=== PATIENT | female | born 1955 | race Caucasian/White ===

== ENCOUNTER 2020-07-12 21:44 | Inpatient (IN) | payer MEDICARE, MEDICAID, OTHER ==
[2020-07-12 23:03] LABS: Bilirubin Negative (Negative); Blood, Urine Negative (Negative); Clarity Clear (Clear); Glucose, Urine (Dipstick) Normal (Negative); Ketone, Urine Negative (Negative); Leukocyte Negative Leu/uL (Negative); Nitrite Negative (Negative); Protein, Urine (Dipstick) 10 mg/dL (Neg-Trace); Specific Gravity, Urine 1.021 (1.002-1.036); Urobilinogen Normal mg/dL (Less than 2)
[2020-07-12 23:13] LABS: Amphetamine Not Detected (NotDetected); Barbiturates Screen Not Detected (NotDetected); Benzodiazepine Screen Not Detected (NotDetected); Cocaine Metabolite Screen Not Detected (NotDetected); Medtox Control Line Valid? VALID (VALID); Medtox Reader # READER 4; Methadone Not Detected (NotDetected); Methamphetamine Not Detected (NotDetected); Opiate Screen Not Detected (NotDetected); Oxycodone Screen Not Detected (NotDetected); Phencyclidine (PCP) Not Detected (NotDetected); THC/Cannabinoid Screen Not Detected (NotDetected); Tricyclic Screen Detected (NotDetected)
[2020-07-13] MEDS ORDERED: Guaifenesin DM 100-10/5 ML UDCUP PO PRN (02:34)
[2020-07-13] MEDS ORDERED: Ondansetron PF 4 MG/2 ML Vial IVP PRN (02:34)
[2020-07-13] MEDS ORDERED: Labetalol HCl 100 MG/20 ML VIAL SLOW IVP PRN (02:34)
[2020-07-13] MEDS ORDERED: Promethazine HCl 12.5 MG in Sodium Chloride 0.9% 50 ML IVPB PRN (02:34)
[2020-07-13] MEDS ORDERED: hydrALAZINE 20 MG/ML VIAL SLOW IVP PRN (02:34)
[2020-07-13] MEDS ORDERED: cloNIDine 0.1 MG TAB PO PRN (02:34)
--- NOTE | 2020-07-13 02:39 | PDOC.HHP ---
Hospitalist HPI - History of Present Illness Altered mental status History of Present Illness: Patient is a 65 year old female with PMH COPD, CHF who presents to ED by annieer for altered mental status, last night she fell around 8pm in restroom onto her face, family had reported that she was running into furniture and was below baseline mentation. 1 hour later she was found unresponsive, not following commands. Was given narcan x 3 doses with some improvement, by time I evaluated her, mentation was back to baseline, she denies any use of narcotic medications but takes 800mg seroquel nightly. She denies fever, chills, shortness of breath. On further questioning, she reports several new large abscesses on thigh and leg. In ED, labs w/ hypokalemia 3.0, UDS positive for tricyclics, troponin EKG NSR, 93 bpm, no acute ST changes, of note QTc 710, CXR report pending patient given IVF, magnesium sulfate. Hospitalist ROS - Review of Systems Constitutional: denies: fever, chills, sweats, weakness, malaise, other Eyes: denies: pain, vision change, conjunctivae inflammation, eyelid inflammation, redness, other ENT: denies: ear pain, ear discharge, nose pain, nose discharge, nose congestion , mouth pain, mouth swelling, throat pain, throat swelling, other Respiratory: denies: cough, dry, shortness of breath, hemoptysis, SOB with excertion, pleuritic pain, sputum, wheezing, other Cardiovascular: denies: chest pain, palpitations, orthopnea, paroxysmal noc. dyspnea, edema, light headedness, other Gastrointestinal: denies: nausea, vomiting, abdominal pain, diarrhea, constipation, melena, hematochezia, other Genitourinary: denies: dysuria, frequency, incontinence, hematuria, retention, other Musculoskeletal: denies: neck pain, shoulder pain, arm pain, back pain, hand pain, leg pain, foot pain, other Skin: denies: rash, lesions, leland, bruising, other Neurological: denies: weakness, numbness, incoordination, change in speech, confusion, seizures, other All other systems reviewed; all pertinent +/- noted in HPI/Subj - Medication Medications: QUEtiapine WedJul 12, 2020 23:06 CLARISSE Aranda Victoria tablet : Strength - 400 mg : ORAL Patient Dose: 800 mg Oral once a day (at bedtime). ranolazine WedJul 12, 2020 23:06 CLARISSE Aranda Victoria tablet extended release 12 hr : Strength - 500 mg : ORAL Patient Dose: 500 mg Oral 2 times a day. gabapentin WedJul 12, 2020 23:07 CLARISSE Aranda Victoria capsule : Strength - 300 mg : ORAL Patient Dose: 300 mg Oral 2 times a day. multivitamin oral WedJul 12, 2020 23:07 CLARISSE Aranda Victoria tablet : ORAL Patient Dose: 1 tab(s) Oral once a day. magnesium WedJul 12, 2020 23:07 CLARISSE Aranda Victoria tablet : Strength - 250 mg : ORAL Patient Dose: 250 mg Oral once a day. B Complex oral WedJul 12, 2020 23:08 CLARISSE Aranda Victoria capsule : ORAL Patient Dose: 1 cap(s) Oral once a day. nitroglycerin sublingual WedJul 12, 2020 23:09 LCARISSE Aranda Victoria tablet, sublingual : Strength - 0.4 mg : SUBLINGUAL Patient Dose: 0.4 mg Sublingual As Needed. albuterol sulfate inhalation WedJul 12, 2020 23:09 CLARISSE Aranda Victoria HFA aerosol inhaler : Strength - 90 mcg : INHALATION Patient Dose: 90 mcg Inhaler As Needed. Hospitalist History - Past Medical History Other Medical History: chf, copd - Past Surgical History Past Surgical History: reports: no pertinent history - Family History Family History: reports: no pertinent history - Social History Smoking Status: Never smoker Alcohol: reports: None Drugs: reports: none - Exam General Appearance: NAD, awake alert Eye: PERRL, anicteric sclera ENT: normocephalic atraumatic, no oropharyngeal lesions, moist mucosa Neck: supple, symmetric, no JVD, no thyromegaly, no lymphadenopathy, no carotid bruit Heart: RRR, no murmur, no gallops, no rubs, normal peripheral pulses Respiratory: CTAB, no wheezes, no rales, no ronchi, normal chest expansion, no tachypnea, normal percussion Gastrointestinal: soft, non-tender, non-distended, normal bowel sounds, no palpable masses, no hepatomegaly, no splenomegaly, no bruit Extremities: no cyanosis, no clubbing, no edema Skin: normal turgor, no lesions, no rashes Skin - other findings: abscesses w/ induration, firmness 4-5cm on back and R inner thigh Neurological: cranial nerve grossly intact, normal sensation to touch, no weakness, no focal deficits, no new deficit Musculoskeletal: normal tone, normal strength, no muscle wasting Psychiatric: normal affect, normal behavior, A&O x 3 Hospitalist Results - Labs Result Diagrams: 07/13/20 03:03 07/13/20 03:04 Lab results: Troponin I 0.040 ng/mL (< 0.028) H 07/13/20 01:05 Urine Ketones Negative mg/dL (Negative) 07/12/20 22:48 Urine Blood Negative (Negative) 07/12/20 22:48 Urine Nitrite Negative (Negative) 07/12/20 22:48 Ur Leukocyte Esterase Negative Patito/uL (Negative) 07/12/20 22:48 Additional comment: VITAL SIGNS Sat Jul 13, 2020 01:20 CLARISSE Aranda Victoria BP: 94/63 MAP: 73 Pulse: 80 Resp: 17 Temp: 97.7 (Oral) O2 sat: 97 on (2L Oxygen) Time: 07/13/2020 01:20. Hospitalist H&P A/P - Plan Plan: 65 year old female with PMH COPD, CHF admitted for altered mental status, syncope. # syncope # altered mental status # prolonged QTc - 710 on EKG # possible tricyclic overdose - long QT and positive tricyclics in urine patient mental status improved now, no narcotics on drug screen so likely naarcan didnt actually do anything, patient at risk of severe arrhtyhmia if this is indeed tricyclic overdose - admit to IMCU - start bicarbonate drip - consult critical care medicine # concern for multiple abscesses on back/thighs - follow blood cultures - started vancomycin - consult surgery to eval for I&D
[2020-07-13] MEDS ORDERED: Electrolyte Replacement Protoc 1 EACH EACH FS SCH (02:45)
[2020-07-13 02:48] VITALS: BMI 28.9
[2020-07-13 03:14] LABS: #Basophils 0.1 thou/uL (0.0-0.2); #Eosinphils 0.1 thou/uL (0.0-0.7); #Lymphocytes 2.4 thou/uL (1.20-3.40); #Monocytes 0.8 thou/uL (0.11-0.59); #Neutrophils 5.9 thou/uL (1.40-6.50); %Basophils 0.5 % (0.0-1.0); %Lymphocytes 26.5 % (21.0-51.0); %Monocytes 8.4 % (0.0-10.0); %Neutrophils 63.6 % (42.0-75.0); Hemoglobin 13.5 g/dL (12.0-16.0); Mean Corpuscular HGB CONC 33.8 g/dL (32.0-36.0); Mean Corpuscular Volume 91.7 fL (78.0-98.0); Mean Platelet Volume 7.9 fL (7.4-10.4); Platelet Count 199 thou/uL (130-400); RBC Distribution Width 12.2 % (11.5-14.5); Red Blood Cell (RBC) Count 4.37 mill/uL (4.20-5.40); White Blood Cell (WBC) Count 9.2 thou/uL (4.8-10.8)
[2020-07-13] MEDS ORDERED: Vancomycin HCl 1.75 GM in Sodium Chloride 0.9% 500 ML IVPB SCH (03:30)
[2020-07-13] MEDS ORDERED: Sodium Chloride 0.9% 1,000 ML IV SCH ×2 (03:30→07:00)
[2020-07-13] MEDS: NS 0.9% w/ 40 MEQ KCL 1,000 ML IV SCH ×2 (03:35→04:23)
[2020-07-13 03:41] LABS: Anion Gap 12 mmol/L (10-20); BUN (Urea Nitrogen) 9 mg/dL (9.8-20.1); Calc. Creatinine Clearance 76 mL/min (70-130); Calcium 7.8 mg/dL (7.8-10.44); Carbon Dioxide 23 mmol/L (23-31); Chloride 104 mmol/L (98-107); Estimated GFR-MDRD 58; Glucose 109 mg/dL (80-115); Magnesium 2.2 mg/dL (1.6-2.6); Sodium 136 mmol/L (136-145)
[2020-07-13 03:49] LABS: Troponin I 0.046 ng/mL (< 0.028)
[2020-07-13] MEDS ORDERED: Electrolyte Replacement Protocol FS PRN (04:30)
[2020-07-13] MEDS ORDERED: Potassium Chloride 20 MEQ TAB PO SCH ×2 (04:45→06:45)
[2020-07-13] MEDS: Melatonin 3 MG TAB PO PRN ×2 (05:15→19:33)
[2020-07-13] MEDS ORDERED: Sodium Bicarbonate 150 MEQ in Dextrose 5% in Water 1,000 ML IV SCH (07:15)
--- NOTE | 2020-07-13 07:55 | RAD ---
SUPINE FRONTAL CHEST: Date: 07/12/2020 COMPARISON: 04/11/2020. HISTORY: Altered mental status. FINDINGS: There is a mass-like opacity in the left upper lobe/left suprahilar region lateral to the left hilar shadow measuring approximately 4.1 cm. Coarse increased linear interstitial densities are noted. Supi ne imaging limits assessment for pneumothorax and pleural fluid. IMPRESSION: Focal mass-like opacity in the suprahilar region on the left. This may represent a left hilar mass le rakesh. Further assessment with CT examination of the chest advised. Results called to Dr. Rivera at 2230 hours on 07/12/2020. CODE CR. POS: OFF
[2020-07-13 08:48] LABS: Band 4 % (5-11); Eosinophils 1 % (0-10); Hemoglobin 12.5 g/dL (12.0-16.0); Lymphocytes 28 % (21-51); MDiff Complete? YES; Mean Corpuscular Hemoglobin 31.6 pg (27.0-31.0); Mean Corpuscular Volume 92.9 fL (78.0-98.0); Mean Platelet Volume 8.5 fL (7.4-10.4); Monocytes 3 % (0-10); Neutrophil 64 % (42-75); Platelet Count 175 thou/uL (130-400); Platelet Morphology Comment Appears Adequate; RBC Distribution Width 12.4 % (11.5-14.5); Red Blood Cell (RBC) Count 3.97 mill/uL (4.20-5.40); White Blood Cell (WBC) Count 6.9 thou/uL (4.8-10.8)
[2020-07-13 08:59] LABS: #Eosinphils 0.1 thou/uL (0.0-0.7); #Lymphocytes 1.5 thou/uL (1.20-3.40); #Monocytes 0.7 thou/uL (0.11-0.59); #Neutrophils 4.7 thou/uL (1.40-6.50); %Basophils 0.6 % (0.0-1.0); %Eosinophils 1.9 % (0.0-10.0); %Lymphocytes 21.5 % (21.0-51.0); %Monocytes 9.5 % (0.0-10.0); %Neutrophils 66.5 % (42.0-75.0); Hemoglobin 12.5 g/dL (12.0-16.0); Mean Corpuscular HGB CONC 33.2 g/dL (32.0-36.0); Mean Corpuscular Hemoglobin 30.9 pg (27.0-31.0); Mean Platelet Volume 7.6 fL (7.4-10.4); Platelet Count 173 thou/uL (130-400); RBC Distribution Width 12.3 % (11.5-14.5); Red Blood Cell (RBC) Count 4.06 mill/uL (4.20-5.40)
[2020-07-13] MEDS: Polyethylene Glycol 3350 17 GM Packet PO SCH (09:21)
[2020-07-13] MEDS: Famotidine 20 MG TAB PO SCH ×2 (09:21→19:33)
[2020-07-13] MEDS: Enoxaparin Sodium 40 MG/0.4 ML SYRINGE SC SCH (09:21)
[2020-07-13 10:52] LABS: Actual Bicarbonate (HCO3a) 22.3 mEq/L (22-28); Base Excess (BEa) -2.6 mEq/L (-2.0 to +3.0); CO2 Tension 39.2 mmHg (35.0-45.0); Calcium, Ionized (arterial) 1.14 mmol/L (1.12-1.30); Carboxyhemoglobin (COHb) 1.3 gm% (0.0-3.0); Hemoglobin (Hb) 12.8 g/dL (12.0-16.0); O2 Tension (PaO2), arterial 77.2 mmHg (> 80.0); Potassium - ABG Lab 3.47 mmol/L (3.70-5.30); pH, Arterial 7.37 (7.35-7.45)
[2020-07-13 10:54] LABS: Puncture Site RRAD
--- NOTE | 2020-07-13 13:48 | CON ---
DATE OF CONSULTATION: REASON FOR CONSULTATION: Syncope. PRIMARY INFRASTRUCTURE CONSULTANT: Dr. Alexis Hernandez. HISTORY OF PRESENT ILLNESS: Ms. Reyes is an unfortunate 65-year-old woman, who recently states she had a syncopal episode. The history is somewhat vague. The patient appears confused. She also appears disheveled. The nurse from the emergency room states she was stumbling and found by her family in the house. She had difficulty with responsiveness. There was concern for overdose on tricyclics. No chest pain or pressure noted. Her initial QT interval was felt to be prolonged, but difficult to ascertain based on her EKG. Her EKG this morning does show a normal QT interval. PAST MEDICAL HISTORY: Hyperlipidemia, hypertension continued tobacco abuse, asthma, bipolar disorder, spinal stenosis, neck surgery, spinal surgery, hysterectomy, hypertension. ALLERGIES: CODEINE, TETRACYCLINE. MEDICATIONS: Home medications include; 1. Albuterol. 2. Nitroglycerin. 3. Ranexa. 4. Quetiapine. 5. Gabapentin. 6. Vitamin B. REVIEW OF SYSTEMS: Difficult to obtain. PHYSICAL EXAMINATION: VITAL SIGNS: Blood pressure 115/49, pulse 96, respirations 20. GENERAL: Patient is a pleasant female, who is in no acute distress. She does appear older and stated age, and disheveled. NEUROLOGIC: The patient is alert and oriented x3 with no focal neurologic deficits. HEENT: Sclerae without icterus. Mouth has moist mucous membranes with normal pallor. NECK: No JVD. Carotid upstroke brisk. No bruits bilaterally. LUNGS: Clear to auscultation with unlabored respirations. BACK: No scoliosis or kyphosis. CARDIAC: Regular rate and rhythm with normal S1 and S2. No S3 or S4 noted. No significant rubs, murmurs, thrills, or gallops noted throughout the precordium. PMI is not displaced. There is no parasternal heave. ABDOMEN: Soft, nontender, nondistended. No peritoneal signs present. No hepatosplenomegaly. No abnormal striae. EXTREMITIES: 2+ femoral and 2+ dorsalis pedis pulses. No cyanosis, clubbing, or edema. SKIN: No gross abnormalities. PERTINENT LABORATORY DATA: Hemoglobin 12.5, hematocrit 37.6. Creatinine 0.96. Peak troponin 0.04. IMPRESSION: 1. Prolonged QT interval. 2. Mild coronary artery disease based on angio of 2013. 3. Tobacco abuse. RECOMMENDATIONS: Ms. Reyes's EKG appears to have normalized. Of course, the history is difficult. The patient is a very poor historian. According to the family, there was no syncope. We will continue to monitor closely. We would recommend an echo Doppler to assess LVEF. Pad Hand on cessation of all tobacco products. Job ID: [id number]
--- NOTE | 2020-07-13 15:56 | CON ---
DATE OF CONSULTATION: 07/13/2020 HISTORY OF PRESENT ILLNESS: Judith Reyes is a 65-year-old female, who was admitted at 2:30 this morning. Per the ER records, she was brought in by EMS via helicopter after being seen by the family, stumbling around the house and falling and hitting her head. Apparently, she is minimally responsive. Apparently, Narcan partially reversed her unresponsiveness. By the time she got here, she was moving all her extremities and following commands. She is verbal, trying to eat a hamburger today, but she is absolutely crosswise in bed with her legs hanging out on one side and her head barely on the bed on the other side. Railings were up. She was dropping her food all over her bed. She asked if I wanted a bite of her hamburger. She does know she is in the hospital. Reviewing old records, she has never been hospitalized here. I was consulted because of her presence in the intermediate care unit. PAST MEDICAL HISTORY: Otherwise unknown with the exception of what is in the available records. She has a history of lipid disorder, hypertension, bipolar disorder, spinal stenosis, history of back surgery, hysterectomy, and reported history of asthma. ALLERGIES: SHE REPORTS CODEINE AND TETRACYCLINE ALLERGIES. MEDICATIONS: Prior to admission, she was on; 1. Albuterol. 2. Nitroglycerin. 3. Ranexa. 4. Seroquel. 5. Gabapentin. 6. Vitamin D. REVIEW OF SYSTEMS: Not obtainable. PHYSICAL EXAMINATION: GENERAL: She is in no distress. She has very rough voice. VITAL SIGNS: She is afebrile. Heart rate is 78, oximetry is 96, blood pressure 115/49. She is very unkept. HEENT: Pupils are equal. Sclerae are anicteric. Extraocular movements appear full. NECK: Supple without lymphadenopathy. LUNGS: Clear. HEART: Regular rhythm. S1 and S2 are normal. ABDOMEN: Soft and nontender. EXTREMITIES: Without asymmetry or edema. NEUROLOGIC: Grossly nonfocal. LABORATORY DATA: White count 7, hemoglobin 12.5, platelets 173. Sodium 136, potassium 3, chloride 104, bicarb 23, BUN 9, and creatinine 0.96. She had tricyclics on her drug screen, no opiates. IMPRESSION: Encephalopathy that appears to be improving. The etiology of her encephalopathy is unknown. It does not appear that she was COVID screened, although that appears to be an unlikely diagnosis. Cardiac workup is progressing. There are no respiratory issues at this point in time. Chest x-ray was reviewed and shows a mass in the left suprahilar region. It measures about 4 cm. It does not appear that she has had any brain imaging. given normal renal function, she needs a CT of her head with and without contrast. I doubt she would hold still for an MRI, this will be ordered. This is a 50 min consult with greater than 50% of the time spent on the unit with coordination of care. Job ID: [id number] MTDD
[2020-07-13] MEDS: Vancomycin 1 GM in Premix Bag 1 BAG IVPB SCH (17:36)
--- NOTE | 2020-07-13 19:13 | PDOC.EVN ---
Event Note - Event Note Event Note: The patient states she was at a friend's house when she was told she passed out. She denies chest pain, palpitations prior to passing out. SHe states she takes 800 mg of seroquel on a nightly basis for insomnia. Denies taking any TCA She reports that she has been in chronic pain for years, including her back, neck and legs. She complains her right arm is hurting. She is on gabapentin and ranolazine at home Patient states she is begging to eat, wants two sodas and "noe food. " She has refused COVID swab and says she has rights Vitals: normal Gen: alert, awake, oriented times three CV: RRR, no murmurs, rubs, gallops Lungs: CTAB Musc: mild tenderness when touching tendon on right forearm. No swelling noted - left medial thigh noted to have indurated abscess, very tender to palpation with warmth and surrounding erythema Abdomen: + BS, soft, nontender, nondistended Back: patient's right upper back noted to have mild possible abscess as well, very tender to palpation This is a 65 year old male with past medical history of insomnia, who presents with syncope #TCA intoxication #QT prolongation - likely from large seroquel dose - repeat EKG shows no prolongation of QT. ABG unremarkable - sodium bicarb drip discontinued Syncope - likely polypharmacy - ECHO has been ordered and shows mild diastolic dysfunction, mildly elevated pulmonary artery pressure. Cardiology has been consulted #Left thigh abscess #Left back abscess - general surgery consulted - continue Iv vancomycin
[2020-07-13] MEDS: Acetaminophen 325 MG TAB PO PRN (19:33)
[2020-07-14] MEDS ORDERED: Nicotine 21 MG PATCH TD SCH ×3 (00:30→21:00)
[2020-07-14 03:37] LABS: #Eosinphils 0.2 thou/uL (0.0-0.7); #Monocytes 0.7 thou/uL (0.11-0.59); #Neutrophils 5.2 thou/uL (1.40-6.50); %Basophils 0.2 % (0.0-1.0); %Eosinophils 2.1 % (0.0-10.0); %Lymphocytes 24.7 % (21.0-51.0); %Monocytes 8.9 % (0.0-10.0); %Neutrophils 64.1 % (42.0-75.0); Mean Corpuscular HGB CONC 33.1 g/dL (32.0-36.0); Mean Corpuscular Hemoglobin 30.8 pg (27.0-31.0); Mean Platelet Volume 7.8 fL (7.4-10.4); Platelet Count 159 thou/uL (130-400); RBC Distribution Width 12.3 % (11.5-14.5); Red Blood Cell (RBC) Count 4.21 mill/uL (4.20-5.40); White Blood Cell (WBC) Count 8.1 thou/uL (4.8-10.8)
[2020-07-14 04:05] LABS: Anion Gap 9 mmol/L (10-20); BUN (Urea Nitrogen) 9 mg/dL (9.8-20.1); Calc. Creatinine Clearance 93 mL/min (70-130); Calcium 8.2 mg/dL (7.8-10.44); Carbon Dioxide 28 mmol/L (23-31); Chloride 104 mmol/L (98-107); Estimated GFR-MDRD 74; Glucose 95 mg/dL (80-115); Magnesium 1.9 mg/dL (1.6-2.6); Sodium 138 mmol/L (136-145)
[2020-07-14 04:14] LABS: Potassium 2.9 mmol/L (3.5-5.1)
[2020-07-14] MEDS ORDERED: Magnesium 2 GM/50 ML 2 GM in Premix Bag 1 BAG IVPB SCH (04:30)
[2020-07-14] MEDS ORDERED: Potassium Chloride 40 MEQ in Sodium Chloride 0.9% 250 ML 250 ML IVPB SCH (05:00)
[2020-07-14] MEDS: Vancomycin 1 GM in Premix Bag 1 BAG IVPB SCH ×2 (05:10→18:46)
[2020-07-14] MEDS: Potassium Chloride 20 MEQ TAB PO SCH ×2 (05:10→09:48)
[2020-07-14] MEDS: Famotidine 20 MG TAB PO SCH ×2 (09:48→20:11)
[2020-07-14] MEDS: Enoxaparin Sodium 40 MG/0.4 ML SYRINGE SC SCH (09:48)
[2020-07-14] MEDS: Polyethylene Glycol 3350 17 GM Packet PO SCH (10:02)
--- NOTE | 2020-07-14 10:28 | CON ---
DATE OF CONSULTATION: 07/14/2020 CHIEF COMPLAINT: Back and thigh abscesses. HISTORY OF PRESENT ILLNESS: This is a 65-year-old female, admitted to the hospital with encephalopathy. She also was complaining of some left thigh and back pain, found to have abscesses. I have been consulted for drainage of those. She initially turned down COVID testing, but after explaining to her the necessity for an operative procedure, she agrees. PAST MEDICAL HISTORY: Includes COPD, chronic pain, hyperlipidemia, hypertension, bipolar, asthma. SURGICAL HISTORY: Hysterectomy, back surgery. ALLERGIES: CODEINE, TETRACYCLINES. MEDICATIONS: Medicines taken daily; 1. Albuterol. 2. Nitro. 3. Ranexa. 4. Seroquel. 5. Gabapentin. 6. Vitamin D. REVIEW OF SYSTEMS: Ten-system review of systems otherwise negative unless described above. PHYSICAL EXAMINATION: HEENT: Sclerae are anicteric. Oropharynx is clear. NECK: No lymphadenopathy. CHEST: Clear. HEART: Regular rate. ABDOMEN: Soft and nontender. She has a left posterior thigh abscess that is 4 cm in size, fluctuant. She has a 3 cm back abscess, it is fluctuant. There is no bulla or crepitance, subcutaneous emphysema present. LABORATORY DATA: White blood cell count is 8, hemoglobin 13. Creatinine is 0.78. ASSESSMENT: Multiple abscesses. PLAN: I and D in the operating room tomorrow under sedation. Risks, benefits, and alternatives discussed. We are awaiting COVID testing. Job ID: [id number]
--- NOTE | 2020-07-14 11:09 | PDOC.HOSPP ---
- Subjective Encounter Date: 07/14/20 Encounter Time: 11:07 Subjective: The patient is doing better. She is oriented times three. No chest pain or palpitations noted. She still complains of right arm pain with any type of movement. She has not gotten out of bed yet, she states "not even pee." She states, "in fact, I don't even have the urge to pee." - Objective Vital Signs & Weight: Vital Signs (12 hours) Temp Pulse Resp Pulse Ox 07/14/20 07:23 96.2 F L 07/14/20 04:15 97.5 F L 76 18 95 07/14/20 00:38 97.4 F L 61 16 96 Weight Weight 185 lb Most Recent Monitor Data Heart Rate from ECG 78 NIBP 113/67 NIBP BP-Mean 82 Respiration from ECG 15 SpO2 92 I&O: 07/13/20 07/14/20 07/15/20 06:59 06:59 06:59 Intake Total 3100 760 Output Total 1050 1875 Balance 0 -1115 Result Diagrams: 07/14/20 03:22 07/14/20 03:22 Hospitalist ROS - Review of Systems Constitutional: denies: fever, chills - Medication Medications: Active Medications Generic Name Dose Route Start Last Admin Trade Name Freq PRN Reason Stop Dose Admin Acetaminophen 650 mg 07/13/20 02:34 07/13/20 19:33 Tylenol PO 650 mg Q4H PRN Administration Headache/Fever/Mild Pain (1-3) Enoxaparin Sodium 40 mg 07/13/20 09:00 07/14/20 09:48 Lovenox SC 40 mg 0900 STEPH Administration Famotidine 20 mg 07/13/20 09:00 07/14/20 09:48 Pepcid PO 20 mg BID STEPH Administration Vancomycin HCl 1 gm/ Device 200 mls @ 200 mls/hr 07/13/20 18:00 07/14/20 05: 10 IVPB 200 mls 0600,1800 STEPH Administration Melatonin 6 mg 07/13/20 04:53 07/13/20 19:33 Melatonin PO 6 mg HS PRN Administration Insomnia Polyethylene Glycol 17 gm 07/13/20 09:00 07/14/20 10:02 Miralax PO Not Given DAILY STEPH Sodium Chloride 10 ml 07/13/20 09:00 07/13/20 19:34 Flush - Normal Saline IVF 10 ml Q12HR STEPH Administration - Exam General Appearance: NAD, awake alert Eye: PERRL, anicteric sclera ENT: normocephalic atraumatic, no oropharyngeal lesions Neck: no JVD Heart: RRR, no murmur, no gallops, no rubs Respiratory: CTAB, no wheezes, no rales, no ronchi Gastrointestinal: soft, non-tender, non-distended, normal bowel sounds Extremities: no cyanosis, no clubbing, no edema Extremities - other findings: right shoulder tenderness, pain lifting right arm above 180. Skin - other findings: old bed bug bites right arm Musculoskeletal - other findings: right elbow tenderness and wrist tenderness with turning wrist Psychiatric: normal affect, normal behavior, A&O x 3, oriented to person Hosp A/P - Plan Chest X ray: mass like opacity in suprahilar region This is a 65 year old male with past medical history of insomnia, who presents with syncope #Acute encephalopathy likely secondary to seroquel - back to baseline - CT brain with and without contrast ordered given that she fell #+TCA - likely cross reactivity from seroquel #QT prolongation - likely from large seroquel dose #Syncope - likely from QT prolongation from seroquel - repeat EKG shows no prolongation of QT. ABG unremarkable - sodium bicarb drip discontinued - seroquel dose is on hold, she takes 800 mg at home - ECHO showed mildly elevated pulmonary artery pressure. Dr Tolbert is following Hypokalemia - potassium 2.9 this am. Repeat potassium at noon, s/p 80 mg of oral potassium #Left suprahilar mass - obtain CT chest without contrast #Left thigh abscess #Left back abscess - general surgery consulted - continue Iv vancomycin . COVID swab pending prior to surgery - NPO after midnight #Right shoulder pain/arm pain s/p fall - no signs of cellulitis, has pain with abduction of right arm, also has elbow and wrist tenderness - check right shoulder and forearm X ray - continue with PT
--- NOTE | 2020-07-14 11:17 | PRG ---
DATE OF SERVICE: 07/14/2020 SUBJECTIVE: Ms. Reyes's status is unchanged. She has no current complaints. No chest pain or pressure noted. Dr. Lopez was consulted for back and thigh abscesses present. She seems to be more lucid today versus yesterday. OBJECTIVE: VITAL SIGNS: Blood pressure 113/67, pulse 82, temperature 99.1. LUNGS: Rhonchi, rales bilaterally. HEART: Regular rate and rhythm. ABDOMEN: Soft, nontender, nondistended. EXTREMITIES: No edema. GENERAL: She appears disheveled. PERTINENT LABORATORY DATA: White blood cell count 8.1, hemoglobin 13. Potassium 2.9. IMPRESSION: 1. Prolonged QT interval. 2. Overuse of tricyclics. 3. Tobacco abuse. 4. Thigh and back abscess. RECOMMENDATIONS: From a CV standpoint she is stable. No significant dysrhythmias noted overnight. I would recommend repeating her EKG this morning. Her QT appeared shortened yesterday. Echo Doppler did show LVEF 55-60%. Otherwise, from my standpoint, I have no recommendations. Job ID: [id number]
[2020-07-14 12:29] LABS: SARS-CoV-2 MS2 Positive; SARS-CoV-2 N Gene Negative; SARS-CoV-2 S Gene Negative; SARS-CoV-2 by NAA Not Detected (NotDetected); SARS-CoV-2 orf1ab Negative
--- NOTE | 2020-07-14 12:40 | RAD ---
Exam:3 views right shoulder HISTORY: Pain. Fall. COMPARISON: 03/29/2014 FINDINGS: Degenerative changes acromioclavicular joint space.: Minimal joint spaces preserved. No fra ctures or dislocation. There does appear to be right first rib fracture. Pleural thickening may be reactive. IMPRESSION: 1. No fractures or dislocation with respect to the shoulder. 2. Right first rib fracture.
--- NOTE | 2020-07-14 12:43 | CT ---
BRAIN CT WITH AND WITHOUT CONTRAST: HISTORY: Encephalopathy. Lung cancer. Evaluate for intracranial metastases. COMPARISON: 07/12/2020. FINDINGS: Noncontrast head CT: No parenchymal hemorrhage. No intra-axial hematoma. No midline shift. Basilar cisterns have age-appro priate atrophy. Cortical stanton-white white matter differentiation is preserved. No hydrocephalus. Intact calvarium. Adequate aeration of the sinuses and mastoid air cells. Postcontrast head CT: No pathologic enhancement of the brain. IMPRESSION: 1. No acute intracranial process. 2. No pathologic enhancement the brain parenchyma. Better interrogation with brain MRI if clinically warranted. Transcribed Date/Time: 07/14/2020 12:57 PM
[2020-07-14 13:59] LABS: Potassium 3.3 mmol/L (3.5-5.1)
--- NOTE | 2020-07-14 14:04 | CT ---
CHEST CT SCAN WITH IV CONTRAST: History: Pulmonary nodule Comparison: Chest CT 05-04-16 FINDINGS: There is a 3.7 x 4.2 cm diameter left anterior upper lobe pleural based mass adjacent to the superior mediastinum as well as some thickening measuring up to approximately 1.8 cm along the left sided ant erior superior mediastinum extending down into the left hilum. There is an enlarged left AP window no de up to approximately 1.8 cm and a left hilar node up to approximately 1.3 cm, short axis. Subcarina l lymph node 0.9 short axis. There is some minimal associated linear and parenchymal change in the le ft upper lobe and a small 1.1 cm diameter pleural based nodule at the level of the AP window more ant eriorly in position. There is some parenchymal change in the lingual which appears to be stable from the prior study. In the right upper lobe there is a 1.2 cm diameter poorly circumscribed pleural base d mass with some irregular right apical pleural thickening as well as some posterior pleural thickeni ng in the right chest into the lower lobe with some right lower lobe partial atelectasis. Minimal lef t sided posterior pleural thickening with a poorly defined pleural based nodule in the left base florentino uring approximately 0.8 cm in size. No evidence for liver metastasis. The visualized upper abdomen ap pears unremarkable. Other than the previously noted scarring in the lingual, these changes are all ne w when compared to the 05-04-16 study. IMPRESSION: Multiple bilateral mostly pleural based nodules with a larger poorly circumscribed pleural based mass in the superior medial left upper lobe with some associated abnormal thickening along the left media stinum with some associated mediastinal and left hilar lymphadenopathy, certainly concerning for neop lasm. Small right pleural effusion/pleural thickening with some atelectasis, partial, in the right lo wer lobe. Consider follow up PET scan for further assessment. POS: OFF
[2020-07-14] MEDS ORDERED: Potassium Chloride 20 MEQ TAB PO SCH (14:30)
--- NOTE | 2020-07-14 15:16 | PRG ---
DATE OF SERVICE: 07/14/2020 Judith Reyes is tentatively on the schedule to have some abscesses drained. She is still completely she is afebrile. Heart rates in the 70s, respiratory rates in the teens, oximetry is 95 [address] of her head with contrast did not show any evidence of brain mets. I do not think she would hold still for an MRI to get a good MRI of her brain. CT scan of her chest is done, showing a large lung mass in her left upper lobe as expected. Workup of this will have to be put on hold while these abscesses are being treated. Job ID: [id number]
[2020-07-14] MEDS: Lidocaine 5% Patch TD SCH (16:48)
[2020-07-14 17:41] LABS: Vancomycin, Trough 18.1 ug/mL
[2020-07-14] MEDS: Melatonin 3 MG TAB PO PRN (20:11)
[2020-07-14] MEDS: Acetaminophen 325 MG TAB PO PRN (20:12)
[2020-07-14] MEDS: Gabapentin 300 MG CAP PO SCH (20:12)
[2020-07-15] MEDS ORDERED: Lidocaine Patch Removal 1 EACH TOP SCH (04:00)
[2020-07-15 04:07] LABS: #Eosinphils 0.1 thou/uL (0.0-0.7); #Monocytes 0.5 thou/uL (0.11-0.59); #Neutrophils 3.8 thou/uL (1.40-6.50); %Basophils 0.5 % (0.0-1.0); %Eosinophils 2.3 % (0.0-10.0); %Lymphocytes 30.3 % (21.0-51.0); %Monocytes 8.4 % (0.0-10.0); %Neutrophils 58.5 % (42.0-75.0); Hemoglobin 12.7 g/dL (12.0-16.0); Mean Corpuscular HGB CONC 33.3 g/dL (32.0-36.0); Mean Corpuscular Hemoglobin 30.9 pg (27.0-31.0); Mean Corpuscular Volume 92.8 fL (78.0-98.0); Platelet Count 192 thou/uL (130-400); RBC Distribution Width 12.4 % (11.5-14.5); White Blood Cell (WBC) Count 6.5 thou/uL (4.8-10.8)
[2020-07-15 04:26] LABS: Anion Gap 10 mmol/L (10-20); BUN (Urea Nitrogen) 9 mg/dL (9.8-20.1); Calc. Creatinine Clearance 98 mL/min (70-130); Calcium 8.5 mg/dL (7.8-10.44); Carbon Dioxide 27 mmol/L (23-31); Chloride 107 mmol/L (98-107); Estimated GFR-MDRD 77; Glucose 93 mg/dL (80-115); Magnesium 1.9 mg/dL (1.6-2.6); Potassium 4.4 mmol/L (3.5-5.1); Sodium 140 mmol/L (136-145)
[2020-07-15] MEDS ORDERED: Magnesium 2 GM/50 ML 2 GM in Premix Bag 1 BAG IVPB SCH (05:00)
[2020-07-15] MEDS: Vancomycin 1 GM in Premix Bag 1 BAG IVPB SCH ×2 (06:06→18:46)
--- NOTE | 2020-07-15 07:19 | RAD ---
Exam:Right forearm 2 views HISTORY: Fall. Pain. COMPARISON: None FINDINGS: No fracture, cortical irregularity or periosteal action. IMPRESSION: No fracture.
--- NOTE | 2020-07-15 08:46 | PRG ---
DATE OF SERVICE: 07/15/2020 SUBJECTIVE: Judith Reyes is tentatively scheduled to have incision and drainage of her abscesses. OBJECTIVE: VITAL SIGNS: She is afebrile. Heart rate is 80, respiratory rates in the teens, oximetry is 94, blood pressure 111/62. LUNGS: Clear. HEART: Regular rate and rhythm. ABDOMEN: Soft. ASSESSMENT AND PLAN: With regard to her lung mass, I am not sure if this is accessible with the bronchoscope. It is not the priority at this point in time. We will continue to follow. She had initially refused COVID testing, hence the delay in going to the OR. We have encouraged her to be compliant with our recommendations in the future. Job ID: [id number]
[2020-07-15] MEDS ORDERED: Bupivacaine 0.25% HCL 30 ML VIAL ONE (09:08)
[2020-07-15] MEDS ORDERED: Lidocaine 1% w/Epinephrine 1:100K 20 ML VIAL ONE (09:08)
[2020-07-15] MEDS ORDERED: Midazolam HCl 2 mg/2 ml Vial ONE (09:24)
[2020-07-15] MEDS ORDERED: Fentanyl 100 MCG/2 ML VIAL ONE (09:24)
[2020-07-15] MEDS: Enoxaparin Sodium 40 MG/0.4 ML SYRINGE SC SCH (10:05)
[2020-07-15] MEDS: Famotidine 20 MG TAB PO SCH (10:05)
[2020-07-15] MEDS: Gabapentin 300 MG CAP PO SCH (10:05)
[2020-07-15] MEDS: Polyethylene Glycol 3350 17 GM Packet PO SCH (10:06)
[2020-07-15] MEDS ORDERED: Ondansetron HCl/PF 4 MG/2 ML Vial IVP PRN (10:33)
[2020-07-15] MEDS ORDERED: Promethazine HCl 25 MG/ML VIAL SLOW IVP PRN (10:33)
[2020-07-15] MEDS ORDERED: Promethazine HCl 25 MG/ML VIAL IM PRN (10:33)
[2020-07-15 11:23] VITALS: TEMP 98.6
[2020-07-15] MEDS ORDERED: traMADol HCl 50 MG TAB PO PRN (11:38)
[2020-07-15] MEDS ORDERED: Morphine 2 MG/ML VIAL SLOW IVP PRN (11:38)
[2020-07-15] MEDS ORDERED: Morphine 4 MG/ML VIAL SLOW IVP PRN (11:38)
--- NOTE | 2020-07-15 15:52 | OP ---
DATE OF PROCEDURE: 07/15/2020 PREOPERATIVE DIAGNOSES: 1. Back abscess. 2. Posterior thigh abscess. POSTOPERATIVE DIAGNOSES: 1. Back abscess. 2. Posterior thigh abscess. PROCEDURE PERFORMED: Incision and drainage of left posterior deep thigh abscess and right upper back abscess. ANESTHESIA: General. ESTIMATED BLOOD LOSS: Minimal. COMPLICATIONS: None. SPECIMENS: Cultures taken for anaerobes and aerobes from the thigh abscess. DESCRIPTION OF PROCEDURE: The patient was taken to the operating room and laid supine on the operating room table. After general anesthetic was obtained, she was placed in a left lateral decubitus position. Her posterior leg and posterior back were prepped and draped in a sterile fashion. An ellipse of skin taken out over the fluctuant part of the back abscess. No purulence was obtained. There was some necrotic tissue that was all debrided out. The wound was irrigated and packed using iodoform gauze. Next, an ellipse of skin was taken out over the posterior thigh abscess. A small amount of purulence was found and cultured. The wound was packed. Sterile dressings were applied to both wounds. The patient was sent to Recovery in stable condition. All instrument counts, needle counts, and lap counts were correct. Job ID: [id number]
[2020-07-15 16:28] VITALS: BP 108/71
--- NOTE | 2020-07-15 17:03 | EKG ---
Test Reason : Blood Pressure : / mmHG Vent. Rate : 074 BPM Atrial Rate : 074 BPM P-R Int : 194 ms QRS Dur : 108 ms QT Int : 430 ms P-R-T Axes : 059 056 072 degrees QTc Int : 477 ms Normal sinus rhythm Cannot rule out Inferior infarct , age undetermined Abnormal ECG No previous ECGs available Confirmed by DR. Micaela DEMPSEY ([id number]) on 07/15/2020 5:02:50 PM Referred By: KAREN Confirmed By:DR. Micaela DEMPSEY
--- NOTE | 2020-07-15 17:17 | EKG ---
Test Reason : Blood Pressure : / mmHG Vent. Rate : 075 BPM Atrial Rate : 075 BPM P-R Int : 174 ms QRS Dur : 096 ms QT Int : 392 ms P-R-T Axes : 093 056 074 degrees QTc Int : 437 ms Normal sinus rhythm slight inferior lateral ST elevation with small q waves of questionable significance ST changes less prominent than 07/13/[address] Micaela DEMPSEY ([id number]) on 07/15/2020 5:17:29 PM Referred By: LEONIDAS Confirmed By:DR. Micaela DEMPSEY
[2020-07-15] MEDS: Lidocaine 5% Patch TD SCH (18:45)
--- NOTE | 2020-07-16 13:26 | DIS ---
DATE OF ADMISSION: 07/13/2020 DATE OF DISCHARGE: 07/15/2020 DISCHARGE DIAGNOSES: 1. Syncope, possibly secondary to QT prolongation from Seroquel versus other TCA medication. 2. Left thigh abscess and left back abscess, status post drainage. 3. Hypokalemia. 4. Elevated troponin. CONSULTATIONS: 1. General Surgery with Dr. Joe Lopez. 2. Dr. Tacos Blair with Cardiology. 3. Dr. Dakota Tolbert with Pulmonary/Critical Care. PROCEDURE: Incision and drainage of left thigh abscess and back abscess on . BRIEF HISTORY OF PRESENT ILLNESS: This is a 65-year-old female, who presented to the emergency room by helicopter after she fell in her restroom at 8 p.m. onto her face. The patient's family had reported that she was running into furniture and was not at her baseline mentation. One hour later, she was not responsive and not following commands. She was given Narcan x3 doses with some improvement. When patient presented to the ER, she was found to have a QTc of 710. Her labs showed a potassium of 3.0. Her urine drug screen was positive for TCAs. Chest x-ray showed a left upper lobe mass. She was admitted for further workup. HOSPITAL COURSE: Syncope secondary to QT prolongation from Seroquel versus TCA: The patient had a CT brain which was normal. She received potassium supplementation for hypokalemia. Her magnesium levels were normal. She was started on a sodium bicarbonate drip and her mental status quickly improved to baseline. ABG was normal. Her bicarb drip was discontinued. Her repeat EKG showed improvement in her QTc to 430. The patient then became very agitated 07/14 and was requesting restarting her Seroquel. Her Seroquel was restarted at half of her home dose at 400 mg. Repeat EKG the following day showed no increase in her QTc. She was advised to continue this lower dose and consider following up with a psychiatrist for alternative medications for her mood disorder. She did have elevated troponins of 0.046. ECHO on 07/13 was normal. She was seen by Cardiology in consultation, who had no further recommendations. Left thigh abscess and left back abscess: The patient had a large abscess on her left thigh with erythema and fluctuance, which was very tender to palpation. She also had one on her upper back. She underwent incision and drainage on 07/15. Bacterial cultures did not show any organisms at this time. Final culture is still pending though. She was treated with IV vancomycin while in the hospital. She was discharged with Bactrim for five-day course. She was set up with wound care on discharge. Left upper lung mass: The patient incidentally was noted to have a left upper lobe mass in her chest x-ray. She underwent a CT scan of her chest and was found to have bilateral lung nodules. Her left upper lobe mass was felt to be suspicious for lung cancer. I discussed with Dr. Tolbert from Pulmonary, who is not sure if this is something amenable to bronchoscopy. He stated he will discuss with Dr. Cai. She will follow up with Dr. Tolbert in 3 to 4 weeks for further workup of this. Right first rib fracture: The patient reported severe pain on her right shoulder while lifting her arm. Shoulder x-ray and forearm x-ray showed no fractures. However, incidentally it showed a right first rib fracture. She was discharged with a lidocaine patch. DISCHARGE PHYSICAL EXAMINATION: VITAL SIGNS: Temperature 98.6, heart rate 80, respiratory rate 15, and O2 saturation 95% on 2 L nasal cannula. GENERAL: The patient is alert, awake, oriented x3. She gets slightly agitated. CVS: Regular rate and rhythm with no murmurs, rubs, or gallops. LUNGS: Clear to auscultation bilaterally. ABDOMEN: Positive bowel sounds, soft, nontender, nondistended. EXTREMITIES: The patient has a left thigh ulcer at the site of her I and D. BACK: The patient has gauze covering her surgical site on her back. I did not notice any purulence coming from the wound. EXTREMITIES: There is no significant edema. PERTINENT LABORATORY DATA: CBC, 07/15: Normal. BMP, 07/15: Normal. Troponin I, 07/13: 0.040, 0.046. UA, 07/12: Negative. U-tox, 07/12: Positive for TCA. COVID serology, 07/13: Negative. IMAGING DATA: Chest x-ray, 07/12: Focal mass-like opacity in the suprahilar region on the left. CT brain, 07/14: No acute process. Shoulder x-ray, 07/14: Right first rib fracture. Forearm x-ray, 07/14: No fracture. Chest CT, 07/14: Multiple bilateral pleural-based nodules with a larger poorly circumscribed pleural-based mass in the superior medial left lobe with associated mediastinal and left hilar lymphadenopathy concerning for neoplasm. Small right pleural effusion/pleural thickening with some atelectasis, partial in the right lower lobe. Echo, 07/13: EF 55% to 60%. Mild MR. Mildly elevated pulmonary artery pressure. Trace TR. DISCHARGE CONDITION: Stable. ACTIVITY: As tolerated. DIET: Regular diet. DISCHARGE MEDICATIONS: 1. Lidocaine patch. 2. Seroquel 400 mg p.o. at bedtime. 3. Bactrim Double Strength one tab p.o. twice daily. 4. Vitamin B. 5. Ranexa 500 mg p.o. b.i.d. 6. Nitroglycerin 0.4 mg sublingual p.r.n. 7. Multivitamin one tablet each daily. 8. Magnesium 250 mg p.o. daily. 9. Gabapentin 300 mg p.o. b.i.d. 10. Albuterol 90 mcg two puffs inhaled q.4 hours p.r.n. DISCHARGE INSTRUCTIONS: The patient should follow up with Dr. Tolbert in 3 weeks for further evaluation of her lung mass. She should follow up with her psychiatrist with regard to switching to a different antipsychotic medicine that does not prolong her QT. She should also follow up with Wound Care for further care of her abscess after I and D. Job ID: [id number] MTDD
--- NOTE | 2020-07-17 05:22 | PQF ---
CLINICAL DOCUMENTATION CLARIFICATION FORM: Dear : Joe Lopez Date / Time: 07/17/20 0521 Please exercise your independent, professional judgment in responding to the clarification form. Clinical indicators are provided on the bottom of this form for your review Please check appropriate box(es): Debridement of back Type and Depth: [x ] Excisional Debridement: Depth / layer: (deepest layer of debridement): [ x ] Skin [ ] Subcutaneous [ ] Fascia [ ] Muscle [ ] Tendon [ ] Bone [ ] Non-excisional Debridement: (Removal by ?ushing, brushing, chemical, or washing) Depth / layer: (deepest layer of debridement): [ ] Skin [ x ] Subcutaneous [ ] Fascia [ ] Muscle [ ] Tendon [ ] Bone And please specify depth for Incision and Drainage of Back and Thight: Depth: [ x ] Skin [ ] Subcutaneous [ ] Fascia [ ] Muscle [ ] Tendon [ ] Bone [ ] Other procedure diagnosis [ ] Unable to determine Physician Signature: Date/Time: For continuity of documentation, please document condition throughout progress notes and discharge summary. Thank You. To be completed by CDI/Coding staff for physician review: Present Clinical Indicators - Signs / Symptoms / Labs Results and Location in Medical Record [X] AN ellipse of skin taken out over the fluctuant part of back abscess. No purulence was obtained Operative report 07/15 Dr Lopez [X] There was some necrotic tissue that was all debrided out Operative report Dr Lopez [X] An ellipse of skin was taken our over the posterior thigh abscess. Small amount of purulent was found and cultured Operative report 07/15 Dr Lopez Present Risk Factors Results and Location in Medical Record [X] 65 year-old Female Operative report 07/15 Dr Lopez [X] Back abscess Operative report 07/15 Dr Lopez [X] Posterior thigh abscess Operative report 07/15 Dr Lopez Present Treatments Results and Location in Medical Record [X] I&D of left thight and Right upper back Operative report 07/15 Dr Lopez [X] Debridement of back Operative report 07/15 Dr Lopez [X] IV Vancomycin 1.75 gm MAR 07/13 [facility] Signature: Lesa Villegassamm Phone #: [phone] Date/Time: 07/17/20520 This is a permanent part of the Medical Record [facility]
--- NOTE | 2020-07-19 08:03 | EKG ---
Test Reason : Blood Pressure : / mmHG Vent. Rate : 088 BPM Atrial Rate : 088 BPM P-R Int : 172 ms QRS Dur : 096 ms QT Int : 372 ms P-R-T Axes : 081 070 073 degrees QTc Int : 450 ms Sinus rhythm with occasional Premature ventricular complexes Otherwise normal ECG When compared with ECG of 14-JUL-2020 17:35, (Unconfirmed) Premature ventricular complexes are now Present Confirmed by DR. Lee HOLBROOK ([id number]) on 07/19/2020 8:03:15 AM Referred By: KAREN Confirmed By:DR. Lee HOLBROOK
== END 2020-07-15 19:10 | disposition home or self-care (01) | DRG 917 ==
LOC: EDBD 21:44 → ERS 21:44 → IMCU/EMU 07-13 02:31
PROVIDERS: ADMIT Internal Medicine; ATTEND Internal Medicine
PROC: 0H9JXZZ Drainage of Left Upper Leg Skin, External Approach (ICD-10-PCS; principal; 2020-07-13)
PROC: 0H96XZZ Drainage of Back Skin, External Approach (ICD-10-PCS; 2020-07-13)
PROC: 0HB6XZZ Excision of Back Skin, External Approach (ICD-10-PCS; 2020-07-13)
DX: T43.011A Poisoning by tricyclic antidepressants, accidental (unintentional), initial encounter (principal); G92 Toxic encephalopathy; R40.2122 Coma scale, eyes open, to pain, at arrival to emergency department; S22.31XA Fracture of one rib, right side, initial encounter for closed fracture; L02.416 Cutaneous abscess of left lower limb; L02.212 Cutaneous abscess of back [any part, except buttock and flank]; I45.81 Long QT syndrome; E87.6 Hypokalemia; R79.89 Other specified abnormal findings of blood chemistry; R91.8 Other nonspecific abnormal finding of lung field; J44.9 Chronic obstructive pulmonary disease, unspecified; F17.210 Nicotine dependence, cigarettes, uncomplicated; E78.5 Hyperlipidemia, unspecified; F31.9 Bipolar disorder, unspecified; I10 Essential (primary) hypertension; I25.10 Atherosclerotic heart disease of native coronary artery without angina pectoris; T43.591A Poisoning by other antipsychotics and neuroleptics, accidental (unintentional), initial encounter; R40.2362 Coma scale, best motor response, obeys commands, at arrival to emergency department; R40.2232 Coma scale, best verbal response, inappropriate words, at arrival to emergency department; W01.198A Fall on same level from slipping, tripping and stumbling with subsequent striking against other object, initial encounter; Y92.002 Bathroom of unspecified non-institutional (private) residence as the place of occurrence of the external cause; Z11.59 Encounter for screening for other viral diseases; Z90.710 Acquired absence of both cervix and uterus; Z88.1 Allergy status to other antibiotic agents; Z88.5 Allergy status to narcotic agent; Z79.899 Other long term (current) drug therapy
CPT/HCPCS: 36415; 51701; 70450; 70470; 71045; 71260; 74177; 80048; 80053; 80202; 80306; 80307; 81003; 82140; 82550; 82553; 82805; 83690; 83735; 84443; 84484; 85025; 85610; 85730; 87040; 87070; 87205; 87635; 93005; 93010; 93306; 96365; 96366; 96367; J1650; J2250; J2704; J3010; J3370; J3475; J3480; J7030; J7070; Q9967; S0020; U0003